=== PATIENT | male | born 1985 | race American Indian/Alaskan Native ===

== ENCOUNTER 2020-12-24 15:11 | Emergency (ER) | payer SELFPAY ==
--- NOTE | 2020-12-24 15:36 | Event Note ---
ED Screening Note ED Screening Note: History obtained from EMS. Plan for the past 2 days patient has exhibited normal behavior according to family report. Family suspects drug use. Patient has had insomnia, racing thoughts. Delusions none due to has been performed on him. He was not cooperative with EMS. He was quite aggressive. He required sedation with 5 mg of Haldol, 5 mg of Versed, 50 mg of diphenhydramine. Patient now is awake and agitated. Orders initiated.
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
[2020-12-24 16:24] LABS: Basophils % (Auto) 0.6 % (0.0-1.8); Eosinophils # (Auto) 0.1 K/mm3 (0.0-0.4); Eosinophils % (Auto) 0.8 % (0.0-4.3); Hematocrit 39.5 % (35.5-45.6); Hemoglobin 13.6 gm/dl (11.8-15.2); Lymphocytes # (Auto) 1.9 K/mm3 (1.2-5.4); Lymphocytes % (Auto) 29.7 % (13.4-35.0); Mean Corpuscular HGB Conc 34 % (32-34); Mean Corpuscular Volume 86 fl (84-94); Monocytes # (Auto) 0.7 K/mm3 (0.0-0.8); Platelet Count 233 K/mm3 (140-440); Red Blood Count 4.58 M/mm3 (3.65-5.03); Red Cell Distribution Width 13.4 % (13.2-15.2)
[2020-12-24 16:42] LABS: Alanine Aminotransferase 25 units/L (7-56); Albumin 4.6 g/dL (3.9-5); BUN/Creatinine Ratio 17; Blood Urea Nitrogen 15 mg/dL (9-20); Calcium 9.4 mg/dL (8.4-10.2); Hemolysis Index 4
[2020-12-24 18:15] VITALS: BP 80/33
[2020-12-25 14:48] LABS: Bilirubin,Urine NEG (Negative); Blood,Urine NEG (Negative); Color,Urine Yellow (Yellow); Mucus,Urine 3+ /HPF; Sperm,Urine 3+ /HPF (NP)
[2020-12-25 15:00] LABS: Cocaine Screen,Urine Negative; Methadone Screen,Urine Negative; Opiate Screen,Urine Negative
[2020-12-25 15:29] LABS: Amphetamine Screen,Urine Positive; Benzodiazepines Screen,Urine Positive; Cannabinoid Screen,Urine Positive
== END 2020-12-24 19:00 | disposition left against medical advice (07) ==
LOC: EEVIPCON 15:11 → ED 15:11
DX: F23 Brief psychotic disorder (principal); F22 Delusional disorders
CPT/HCPCS: 36415; 80053; 80307; 80320; 81001; 85025; 87086; 99284; G0480

== ENCOUNTER 2020-12-25 14:14 | Emergency (ER) | payer OTHER, SELFPAY ==
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
[2020-12-25 15:30] LABS: Blood Urea Nitrogen 10 mg/dL (9-20); Calcium 9.4 mg/dL (8.4-10.2); Hemolysis Index 10
[2020-12-25 15:31] LABS: BUN/Creatinine Ratio 14; Basophils % (Auto) 0.8 % (0.0-1.8); Eosinophils # (Auto) 0.1 K/mm3 (0.0-0.4); Hematocrit 43.3 % (35.5-45.6); Lymphocytes # (Auto) 2.2 K/mm3 (1.2-5.4); Lymphocytes % (Auto) 37.5 % (13.4-35.0); Mean Corpuscular HGB Conc 35 % (32-34); Mean Corpuscular Volume 87 fl (84-94); Monocytes # (Auto) 0.5 K/mm3 (0.0-0.8); Monocytes % (Auto) 8.9 % (0.0-7.3); Red Blood Count 4.97 M/mm3 (3.65-5.03); Red Cell Distribution Width 13.2 % (13.2-15.2)
[2020-12-25 15:36] LABS: Platelet Count 253 K/mm3 (140-440)
--- NOTE | 2020-12-26 08:15 | Consultation ---
History of Present Illness - Reason for Consult Consult date: 12/26/20 Reason for consult: delusional - History of Present Psychiatric Illness Per ER Note: Patient is 35 years old male with unclear psychiatric history. Patient brought to the emergency room by Police Department after patient eloped from the hospital yesterday. Patient was admitted yesterday for acute psychosis. Patient is very delusional and paranoid. Patient stated that he is a friend of Trey. Patient have to be sedated yesterday with Haldol, Benadryl and Versed. Patient currently denying any suicidal or homicidal ideation. He also denied any visual auditory hallucination. Hernan Young is a 35y/o male patient who was seen today. The patient is a/o x 3. He is pleasant, calm and cooperative. He is polite. The patient says he was brought in because somebody called the police. He says "I was sitting on my porch praying." He says then "I tried to walk to the store and get some cigarets and here comes the police." He says "I realize now that I just have to pray for people and leave them alone." The patient denies being SI/HI. He states "ma'am I couldn't hurt a bug, let alone myself or somebody else." He denies being on any psych meds. And stares he saw a psychiatrist "a long time ago. I don't even remember it's been so long." He denies any illicit drug use outside of THC. He also denies ever having a suicidal attempt or any psych admissions. The patient states "I have never wanted to hurt myself." THe patient also denies any fear or feeling of endangerment. PAST PSYCHIATRIC HISTORY: Diagnoses: Denies Suicide attempts or Self-harm behavior: denies Prior psychiatric hospitalizations: denies Substance Abuse history: Denies Previous psychiatric medications tried: Denies Outpatient treatment: Denies PAST MEDICAL HISTORY: None reported Family Psychiatric History: None reported or documented SOCIAL HISTORY Marital Status: Single Living Arrangements: with mother and kids Employment Status: Unemployed Access to guns/weapons: Denies Education: 11th grade History of Abuse: None reported Legal History: None REVIEW OF SYSTEMS Constitutional: Negative for weight loss ENT: Negative for stridor Respiratory: Negative for cough or hemoptysis All other systems reviewed and are negative MENTAL STATUS EXAMINATION General Appearance and Behavior: Age appropriate, wearing appropriate clothes, calm, cooperative, polite, pleasant Cooperation: Participating, engagin Psychomotor Behavior: unremarkable and within normal limits Mood: good Affect and affective range: Euthymic, smiling Thought Process: goal directed Thought Content: None Speech: Normal volume, Regular rate and rhythm, Intellectual Functioning: Average Suicidal Ideation: Denies SI Homicidal Ideation: Denies HI Hallucinations: Denies Delusions: None elicited Impulse Control: Unimpaired Insight and Judgment: Limited insight and judgment Memory: Normal Attention: Undivided attention impaired Orientation: Alert, oriented, Diagnoses: Psychosis Treatment Plan d/c 1013 No scripts given Sitter: Per primary Medical: Per primary Disposition: Do not recommend acute psychiatric inpatient. The patient understands that if SI/HI or any fear of endangerment are to occur he should seek immediate assistance. The transport technician to give outpatient resources. The patient to follow up in 7 to 14 days upon discharge Will sign off. Thank you. Case staffed with Dr. Gallegos Medications and Allergies Allergies Allergy/AdvReac Type Severity Reaction Status Date / Time No Known Allergies Allergy Verified 12/09/14 01:39 Home Medications Medication Instructions Recorded Confirmed Last Taken Type No Known Home Medications [No 12/26/20 12/26/20 Unknown History Reported Home Medications] Mental Status Exam - Vital signs Last Vital Signs Temp 97.8 F 12/26/20 03:40 Pulse 79 12/26/20 03:40 Resp 18 12/26/20 03:40 BP 105/77 12/26/20 03:40 Pulse Ox 97 12/26/20 03:40 Results Result Diagrams: 12/25/20 14:53 12/25/20 14:53 Abnormal lab results 12/25/20 12/25/20 12/25/20 Range/Units 14:53 14:53 14:53 MCHC 35 H (32-34) % Lymph % (Auto) 37.5 H (13.4-35.0) % Sumner % (Auto) 8.9 H (0.0-7.3) % Sodium 135 L (137-145) mmol/L Creatinine 0.7 L (0.8-1.3) mg/dL Salicylates < 0.3 L (2.8-20.0) mg/dL Acetaminophen (10.0-30.0) ug/mL 12/25/20 Range/Units 14:53 MCHC (32-34) % Lymph % (Auto) (13.4-35.0) % Sumner % (Auto) (0.0-7.3) % Sodium (137-145) mmol/L Creatinine (0.8-1.3) mg/dL Salicylates (2.8-20.0) mg/dL Acetaminophen 5.0 L (10.0-30.0) ug/mL All other labs normal.
[2020-12-26 08:23] LABS: Benzodiazepines Screen,Urine Negative; Cocaine Screen,Urine Negative; Methadone Screen,Urine Negative; Opiate Screen,Urine Negative
[2020-12-26 08:25] LABS: Bacteria,Urine 4+ /HPF (Negative); Bilirubin,Urine NEG (Negative); Blood,Urine NEG (Negative); Color,Urine Yellow (Yellow); Mucus,Urine FEW /HPF; Protein,Urine <15 mg/dL mg/dL (Negative); Sperm,Urine 2+ /HPF (NP); Urobilinogen,Urine < 2.0 mg/dL (<2.0)
[2020-12-26 08:26] LABS: WBC,Urine > 182.0 /HPF (0.0-6.0)
[2020-12-26 08:28] VITALS: BP 110/77
[2020-12-26 09:07] LABS: Amphetamine Screen,Urine PRESUMPTIVE POSITIVE; Cannabinoid Screen,Urine PRESUMPTIVE POSITIVE
== END 2020-12-26 10:19 | disposition home or self-care (01) ==
LOC: ED 14:14
DX: F23 Brief psychotic disorder (principal); F19.951 Other psychoactive substance use, unspecified with psychoactive substance-induced psychotic disorder with hallucinations; Z20.822 Contact with and (suspected) exposure to COVID-19; N39.0 Urinary tract infection, site not specified; F17.200 Nicotine dependence, unspecified, uncomplicated; F12.90 Cannabis use, unspecified, uncomplicated; Z98.890 Other specified postprocedural states; Z79.899 Other long term (current) drug therapy
CPT/HCPCS: 36415; 80048; 80307; 81001; 85025; 99284; U0003; 80320; G0480